=== PATIENT | female | born 1995 | race Caucasian/White ===

== ENCOUNTER 2019-02-26 14:46 | Emergency (ER) | payer BC ==
[~2019-02-26] VITALS: Ht 170.2 cm; Wt 61.4 kg
[~2019-02-26 14:46] MED LIST: AMOXICILLIN 8751 TAB PO; CLARITIN; COMPAZINE 5MG TA5 MG PO; DOXYCYCLINE 10100 MG PO; DOXYCYCLINE 50M50 MG PO; EYE GTTS; LEXAPRO20 MG PO; MAGNESIUM500 MG PO; MAXALT10 MG; NORCO 325 MG-51 TAB PO; PHENERGAN 25 TA25 MG; ZOFRAN 4MG T4 MG/TAB PO
[2019-02-26 14:57] VITALS: BP 141/95; TEMP 97.5
[2019-02-26] MEDS ORDERED: BUSPIRONE HCL7.5 MG PO (15:26)
[2019-02-26] MEDS ORDERED: ZOLOFT 100MG100 MG PO (15:26)
[2019-02-26] MEDS ORDERED: FLAGYL500 MG PO (15:27)
[2019-02-26] MEDS ORDERED: ZANAFLEX CAPSULE4 MG PO (15:27)
[2019-02-26] MEDS ORDERED: CEPHALEXIN250 M1 PO (15:28)
[2019-02-26] MEDS ORDERED: AMOXICILLIN 8751 TAB PO (17:01)
[2019-02-26 17:14] VITALS: PULSE 61
== END 2019-02-26 17:15 | disposition home or self-care (01) ==
LOC: COL.ER 14:46
DX: H02.841 Edema of right upper eyelid (principal); H02.842 Edema of right lower eyelid; F32.9 Major depressive disorder, single episode, unspecified; F41.9 Anxiety disorder, unspecified; Z87.442 Personal history of urinary calculi